=== PATIENT | male | born 1975 | race Two or more races ===

== ENCOUNTER → 2025-04-30 | Outpatient (CLI) | payer OTHER, SELFPAY ==
--- NOTE | 2025-04-30 15:07 | XR_ITS ---
Examination: Thoracic spine 3 views Technique one AP lateral coned lateral upper dorsal spine 3 views Date and time: April 30, 2025 1521 hours INDICATIONS: History to the back today days ago back pain FINDINGS: No acute thoracic fracture Mild diffuse thoracic disc narrowing Minimal thoracic spondylosis IMPRESSION: No acute thoracic fracture
--- NOTE | 2025-04-30 15:07 | XR_ITS ---
Examination: PA lateral chest 2 views TECHNIQUE: Upright PA lateral chest 2 views Date and time: April 30, 20252010 hours INDICATIONS: Lower back pain beginning 8 days ago FINDINGS: Normal heart size Lungs are clear. The osseous structures are intact IMPRESSION: No active disease
--- NOTE | 2025-04-30 15:07 | XR_ITS ---
Examination: Lumbar spine, 5 views Technique: Lumbar spine AP, lateral, coned lateral lower lumbar spine, bilateral obliques 5 views Exam date and time: April 30, 2025 1511 hours INDICATIONS: Lower back pain 8 days FINDINGS: Mild osteopenia No acute lumbar fracture Mild lumbar spondylosis Moderate to advanced degenerative disc disease L5-S1 IMPRESSION: Moderate to advanced degenerative disc disease L5-S1
== END | disposition home or self-care (01) ==
LOC: CDIM 14:50
PROVIDERS: PCP Nurse Practitioner Family; Referring Provider Nurse Practitioner Family; Visit Provider Family Medicine
DX: M51.379 Other intervertebral disc degeneration, lumbosacral region without mention of lumbar back pain or lower extremity pain (principal); S30.0XXA Contusion of lower back and pelvis, initial encounter; S29.012A Strain of muscle and tendon of back wall of thorax, initial encounter
CPT/HCPCS: 71046; 72070; 72110